=== PATIENT | male | born 1985 | race Caucasian/White ===

== ENCOUNTER → 2018-10-02 10:01 | Outpatient (CLI) | payer OTHER, SELFPAY ==
--- NOTE | 2018-10-02 10:10 | RAD_ITS ---
STUDY: X-RAY CHEST REASON FOR EXAM: Male, 32 years old. Shortness of breath for one month. History of allergies. TECHNIQUE: PA and lateral views of the chest. COMPARISON: February 14, 2008. FINDINGS: The lungs are clear and expanded. There is no demonstrated pleural abnormality. Normal size heart. Normal mediastinum and samson. Normal visualized pulmonary arteries. Normal visualized aortic arch and descending thoracic aorta. Normal visualized thoracic spine. Normal visualized ribs, clavicles, and shoulders. There is no demonstrated abnormality of the visualized soft tissue structures of the upper abdomen. RAD/Chest PA and Lateral IMPRESSION: Normal x-ray examination of the chest. There is no interval change. Electronically Signed: Ramon Bae DO at 19:05 EST Tel [phone], Service support ,
[2018-10-02 13:03] LABS: Anion Gap 5 (5-15); BUN 18 mg/dL (7-18); BUN/Creat Ratio 14.4 RATIO (10-20); Calcium,Total 9.1 mg/dL (8.5-10.1); Chloride 105 mmol/L (98-107); Cholesterol 150 mg/dL (200); Creatinine, Serum 1.25 mg/dL (0.70-1.30); EST Glomerular Filtration Rate 71 mL/min (>60); Est Glom Filt Rate - Afr Amer 86 mL/min (>60); Glucose 78 mg/dL (74-106); High Density Lipoprotein 45 mg/dL; Sodium Level 138 mmol/L (136-145); Triglycerides 70 mg/dL; Very Low Density Lipoprotein 14 mg/dL (5-40)
== END ==
PROVIDERS: Family Provider Family Medicine; PCP Family Medicine; Referring Provider Family Medicine; Visit Provider Family Medicine
DX: R07.89 Other chest pain (principal)
CPT/HCPCS: 36415; 71046; 80048; 80061

== ENCOUNTER → 2018-10-11 11:22 | Outpatient (CLI) | payer OTHER, SELFPAY ==
--- NOTE | 2018-10-11 16:14 | STRESSREP ---
Stress Test Report Treadmill EKG report: Resting EKG: Normal sinus rhythm, normal intervals, no evidence of previous myocardial infarction. Treadmill EKG: The patient exercise according to a Santos protocol for 8 minutes and 59 seconds achieving a maximum workload of 10.1 0 METS. His resting heart rate is 83 beats a minute and mariano to max of 166 beats a minute which represents 88% of the maximal age bracket heart rate. Resting blood pressure is 118/78 and mariano to maximum of 140/64. Test was terminated due to leg discomfort. During exercise the patient's heart rate increased as expected. Patient had rare PVC noted. The patient has subtle upsloping ST segment depression during exercise which quickly resolved into recovery at about 1 minute and 1 second. No anginal symptoms noted. Conclusions normal, adequate, treadmill EKG. Negative for ischemia by EKG criteria. No anginal symptoms noted. Rare PVC noted. Appropriate blood pressure response to exercise. Average exercise capacity for age. Test terminated due to leg discomfort. No complications.
== END ==
PROVIDERS: Family Provider Family Medicine; PCP Family Medicine; Referring Provider Family Medicine; Visit Provider Family Medicine
DX: R07.89 Other chest pain (principal)
CPT/HCPCS: 93017

== ENCOUNTER → 2020-10-07 | Outpatient (CLI) | payer OTHER, SELFPAY | END | disposition home or self-care (01) | LOC: LABSPEC 17:04 | PROVIDERS: PCP Family Medicine; Referring Provider Family Medicine; Visit Provider Family Medicine | DX: Z20.828 Contact with and (suspected) exposure to other viral communicable diseases (principal) | CPT/HCPCS: 87635; U0003 ==

== ENCOUNTER → 2021-02-24 10:33 | Outpatient (CLI) | payer OTHER, SELFPAY ==
--- NOTE | 2021-02-24 10:36 | RAD_ITS ---
INDICATION: LUMBAR RADICULOPATHY EXAMINATION/TECHNIQUE: X-RAY - XR Spine Lumbar Min 4 Views COMPARISON: None. FINDINGS: VERTEBRAE: Preserved vertebral body height. No fracture. No spondylolisthesis. Preservation of the normal lumbar lordosis. No significant facet arthropathy. DISCS: Disc spaces are maintained. INCLUDED ABDOMEN: Included bowel gas pattern is non-obstructive. RAD/L/S Spine Min 4 Views IMPRESSION: Normal lumbar spine. Electronically Signed: Dejuan Rosen MD at 1:50 EDT Tel , Service support ,
== END ==
LOC: MTRAD 10:35
PROVIDERS: PCP Family Medicine; Referring Provider Family Medicine; Visit Provider Family Medicine
DX: M54.16 Radiculopathy, lumbar region (principal)
CPT/HCPCS: 72110